=== PATIENT | male | born 1940 ===

== ENCOUNTER → 2017-02-08 | Outpatient (CLI) | payer MEDICARE, BC ==
[2017-02-08 11:35] LABS: HEMATOCRIT 39.8 % (37.0-53.0); HEMOGLOBIN 13.1 g/dL (11.0-16.0); MCHC 32.9 gm/dL (32.0-36.5); MCV 91.1 fl (83.0-98.0); MPV 11.8 fl (9.4-12.4); RBC 4.37 M/uL (3.50-5.50); RDW-CV 13.2 % (11.9-14.6); WBC 6.8 K/uL (4.0-11.0)
[2017-02-08 11:47] LABS: ALBUMIN 3.8 gm/dL (3.5-5.0); ANION GAP 14.6 (10.0-19.0); CREATININE 1.6 mg/dL (0.6-1.3); PHOSPHORUS 3.1 mg/dL (2.5-4.9); POTASSIUM 4.6 mMol/L (3.7-5.1)
== END | disposition disaster alternative care site (69) ==
LOC: LGSMG 10:59
PROVIDERS: Internal Medicine Nephrology
DX: N18.3 Chronic kidney disease, stage 3 (moderate) (principal)